=== PATIENT | male | born 1975 | race Caucasian/White ===

== ENCOUNTER → 2023-01-14 12:44 | Outpatient (BNVA) | payer OTHER, SELFPAY | PROVIDERS: PCP Hospitalist; Visit Provider Internal Medicine | DX: S97.82XA Crushing injury of left foot, initial encounter (principal); W20.8XXA Other cause of strike by thrown, projected or falling object, initial encounter | CPT/HCPCS: 99203 ==

== ENCOUNTER → 2023-02-04 15:13 | Outpatient (BNVA) | payer OTHER, SELFPAY | PROVIDERS: PCP Physician Assistant; Visit Provider Physician Assistant Medical | DX: S97.82XD Crushing injury of left foot, subsequent encounter (principal); W20.8XXD Other cause of strike by thrown, projected or falling object, subsequent encounter | CPT/HCPCS: 99213 ==

== ENCOUNTER → 2023-05-05 08:14 | Outpatient (BNVA) | payer OTHER, SELFPAY | PROVIDERS: PCP Physician Assistant; Visit Provider Internal Medicine | DX: M75.42 Impingement syndrome of left shoulder (principal) | CPT/HCPCS: 99203 ==

== ENCOUNTER → 2023-05-09 08:25 | Outpatient (BNVA) | payer OTHER, SELFPAY | PROVIDERS: PCP Physician Assistant; Visit Provider Internal Medicine | DX: M75.42 Impingement syndrome of left shoulder (principal) | CPT/HCPCS: 99213 ==

== ENCOUNTER → 2023-07-28 10:29 | Outpatient (BNVA) | payer OTHER, SELFPAY | PROVIDERS: PCP Physician Assistant; Visit Provider Internal Medicine | DX: S61.233A Puncture wound without foreign body of left middle finger without damage to nail, initial encounter (principal); W26.8XXA Contact with other sharp object(s), not elsewhere classified, initial encounter | CPT/HCPCS: 84450; 84460; 86706; 86803; 87389; 99202 ==

== ENCOUNTER → 2023-09-12 14:35 | Outpatient (BNVA) | payer OTHER, SELFPAY | PROVIDERS: PCP Physician Assistant | DX: Z77.21 Contact with and (suspected) exposure to potentially hazardous body fluids (principal); Z23 Encounter for immunization | CPT/HCPCS: 99211 ==

== ENCOUNTER → 2023-10-24 09:52 | Outpatient (BNVA) | payer OTHER, SELFPAY | PROVIDERS: PCP Physician Assistant | DX: Z77.21 Contact with and (suspected) exposure to potentially hazardous body fluids (principal) | CPT/HCPCS: 84450; 84460; 86803; 87389; 99211 ==

== ENCOUNTER → 2024-01-30 14:53 | Outpatient (BNVA) | payer OTHER, SELFPAY | PROVIDERS: PCP Physician Assistant | DX: Z77.21 Contact with and (suspected) exposure to potentially hazardous body fluids (principal) | CPT/HCPCS: 84450; 84460; 86803; 87389; 99211 ==

== ENCOUNTER → 2024-02-20 14:59 | Outpatient (BNVA) | payer OTHER, SELFPAY | PROVIDERS: PCP Physician Assistant | DX: Z77.21 Contact with and (suspected) exposure to potentially hazardous body fluids (principal); Z23 Encounter for immunization ==

== ENCOUNTER → 2024-03-26 15:06 | Outpatient (BNVA) | payer OTHER, SELFPAY | PROVIDERS: PCP Physician Assistant | DX: Z77.21 Contact with and (suspected) exposure to potentially hazardous body fluids (principal); Z23 Encounter for immunization | CPT/HCPCS: 99211 ==

== ENCOUNTER 2024-05-21 09:09 | Outpatient (REF) | payer OTHER, SELFPAY ==
[2024-05-21 14:11] LABS: Influenza A PCR NEGATIVE (Negative); Influenza B PCR NEGATIVE (Negative); Resp Syncy Virus RNA Qual PCR NEGATIVE (Negative); SARS COV2 PCR INHOUSE NEGATIVE (Negative)
== END 2024-05-21 09:10 | disposition home or self-care (01) ==
LOC: HO.LAB 09:09
PROVIDERS: Physician Assistant; PCP Physician Assistant
DX: J06.9 Acute upper respiratory infection, unspecified (principal)
CPT/HCPCS: 0241U

== ENCOUNTER 2024-05-21 09:09 | Outpatient (AMB) | payer OTHER, SELFPAY ==
[2024-05-21 09:58] VITALS: BP 130/82; PULSE 79; TEMP 36.7; O2SAT 98; BMI 29.6
--- NOTE | 2024-05-21 09:58 | AM.OFFWIN_ITS ---
Intake Vital Signs 05/21/24 09:58 Height 6 ft Weight 218 lb BMI 29.6 BP 130/82 Blood Pressure Location Rt brachial Position Sitting Pulse 79 Pulse Source Pulse Oximeter Temp 98.0 F Temp Source Oral Pulse Oximetry (%) 98 Oxygen Delivery Method Room Air Intake Visit Reasons: EP-sinus pain & pressure, cold symptoms Intake Note: Pt is here today c/o sinus pain and pressure and coughing x1week Patient Tobacco Use Status: Never used Tobacco Allergies No Known Allergies Allergy (Unverified 05/21/24 09:59) HPI HPI Comments History of Present Illness Details History - The patient is a 49-year-old male pres enting with sinus pain and pressure. - Symptoms of sinusitis have been presen t for two to three days, following a common cold experienced over the past week. - The patient's current regimen includes generic medications for relief of sinus symptoms. - Additional management involved Mucinex to address cough and cold symptoms, yielding only short-term symptom relief. - The patient reports no fever, breathin g difficulty, or history of lung disease, and does not frequently experience sinus infections. Physical Exam General: Cooperative, healthy appearing, comfortable and no acute distress Orientation/consciousness: Patient oriented x3 Limitations: No limitations Head: Normal to inspection Ears: Hearing grossly normal bilaterally, external ears normal and TM's normal bilaterally Nose: Normal external nose present, Normal nares present and No nasal discharge present Face and sinus: Normal facial exam and ethmoid sinuses tender Mouth: Normal oral and palatal mucosa present and moist mucous membranes Throat: Yes tonsils normal, Yes uvula midline. Posterior oropharynx erythema Eyes: Appearance normal, both eyes and all related structures Neck: Normal visual inspection Respiratory: Clear to auscultation bilaterally. Normal respiratory effort, able to speak in complete sentences, Actively coughing, no respiratory distress, not tachypneic, no tripod positioning and no use of accessory muscles Cardiovascular: Regular rate and rhythm. Normal S1 and S2 Skin: No rashes or lesions noted Neuro: Patient oriented x3 Extremities: Normal to inspection and Yes no clubbing, cyanosis or edema PFSH Social History Patient Tobacco Use Status: Never used Tobacco Review of Systems Const All systems reviewed & are unremarkable except as noted in HPI and below Physical Exam Vital Signs: Last Vital Signs Temp 98.0 F 05/21/24 09:58 Pulse 79 01/03/25 09:58 BP 130/82 05/21/24 09:58 Pulse Ox 98 05/21/24 09:58 Oxygen Delivery Method Room Air 05/21/24 09:58 BMI result Body Mass Index 29.6 Assessment & Plan Assessment & Plan (1) Sinusitis, acute ethmoidal: Code(s): J01.20 - Acute ethmoidal sinusitis, unspecified Qualifiers: Recurrence: non-recurrent Qualified Code(s): J01.20 - Acute ethmoidal sinusitis, unspecified Plan: Testing for COVID-19, influenza, and RSV will be performed to rule out etiologies contributing to the sinusitis symptoms. Considering possible bacterial escalation, Augmentin is prescribed for seven days with instructions to initiate treatment should symptoms persist or worsen over the weekend. Proper nasal spray administration using Flonase is advised to potentially alleviate sinus congestion. The patient is informed regarding the predictable viral course of sinusitis, emphasizing careful monitoring of symptom progression to guide the necessity of antibiotic therapy. Patient was informed and verbally consented to the use of an ambient scribe for clinic note documentation during this visit Orders: Orders SARS-CoV2/FLU/RSV Today J06.9 - Acute upper respiratory infection, unspecified Medications: New amoxicillin-pot clavulanate 875-125 mg 1 tab PO Q12H 14 tabs 0RF Coding Level of Care Code New Pt Level 3 (38974) Diagnoses Acute non-recurrent ethmoidal sinusitis J01.20 Recurrence: non-recurrent
== END 2024-05-21 10:28 | disposition home or self-care (01) ==
PROVIDERS: PCP Physician Assistant; Visit Provider Physician Assistant
DX: J01.20 Acute ethmoidal sinusitis, unspecified (principal)